=== PATIENT | male | born 1965 | race African-American/Black ===

== ENCOUNTER 2022-02-28 12:10 | Inpatient (IN) | payer OTHER ==
[~2022-02-28] VITALS: Ht 167.6 cm; Wt 75.3 kg
[2022-02-28] MEDS ORDERED: ACETAMINOPHEN 325MG TABLET PO STA (12:54)
[2022-02-28] MEDS ORDERED: SODIUM CHLORIDE 0.9% 1000ML BAG (SEPSIS BOLUS) IV ONE (13:00)
[2022-02-28] MEDS ORDERED: CEFTRIAXONE 1 G PREMIX 50 ML IV ONE (13:00)
[2022-02-28] MEDS ORDERED: VANCOMYCIN 1G PREMIX 200 ML IV ONE (13:00)
[2022-02-28 13:17] LABS: BASOPHILS % 0.3 % (0.0-2.0); EOSINOPHILS % 1.7 % (0.0-5.0); HEMATOCRIT. 43.7 % (42.0-52.0); HEMOGLOBIN. 14.5 g/dL (14.0-18.0); LYMPHOCYTES % 12.5 % (20.0-50.0); MEAN CORPUSCULAR HEMOGLOBIN 29.2 pg (28.0-32.0); MEAN PLATELET VOLUME 7.7 fl (7.4-10.4); MONOCYTES % 8.8 % (2.0-8.0); NEUTROPHILS % 76.7 % (40.0-76.0); PLATELET 223 x1000/uL (130-400); RED BLOOD CELL COUNT 4.97 mill/uL (4.7-6.1); RED CELL DISTRIBUTION WIDTH 14.4 % (11.6-14.6)
[2022-02-28 13:18] LABS: CHLORIDE 104 mEq/L (98-107)
[2022-02-28 13:42] LABS: CLARITY URINE CLEAR (CLEAR); COLOR URINE YELLOW (YELLOW); KETONES URINE TRACE (NEGATIVE); LEUKOCYTE ESTERASE URINE NEGATIVE (NEGATIVE); NITRITE URINE NEGATIVE (NEGATIVE); OCCULT BLOOD URINE NEGATIVE (NEGATIVE); PH URINE 5.5 (4.5-8.0); PROTEIN URINE 1+ (NEGATIVE); SPECIFIC GRAVITY URINE 1.028 (1.005-1.030)
[2022-02-28 18:00] VITALS: BP 98/60
[2022-02-28 20:00] VITALS: BP 113/62
[2022-02-28] MEDS ORDERED: DEXTROSE 50% WATER 50ML SYRINGE IV PRN (20:30)
[2022-02-28] MEDS ORDERED: ACETAMINOPHEN 325MG TABLET PO PRN (20:30)
[2022-02-28 20:31] VITALS: BP 113/62
[2022-02-28] MEDS: BLOOD SUGAR DIAGNOSTIC STRIP TEST SCH (21:00)
[2022-02-28] MEDS: INSULIN LISPRO 100 UNITS/ML SUBCUT SCH (21:00)
[2022-02-28] MEDS: PIPERACILLIN/TAZOBACTAM 3.375 G in DEXTROSE 5% WATER 50 ML IV SCH (23:19)
[2022-02-28] MEDS: OSELTAMIVIR 75MG CAPSULE PO SCH (23:19)
[2022-03-01] VITALS: BP 115/65
[2022-03-01 04:00] VITALS: BP 110/50
[2022-03-01] MEDS: PIPERACILLIN/TAZOBACTAM 3.375 G in DEXTROSE 5% WATER 50 ML IV SCH ×3 (06:11→22:17)
[2022-03-01] MEDS: BLOOD SUGAR DIAGNOSTIC STRIP TEST SCH ×4 (06:50→20:31)
[2022-03-01] MEDS: INSULIN LISPRO 100 UNITS/ML SUBCUT SCH ×4 (07:35→20:31)
[2022-03-01 07:48] LABS: HEMATOCRIT. 40.5 % (42.0-52.0); HEMOGLOBIN. 13.6 g/dL (14.0-18.0); MEAN CORPUSCULAR HEMOGLOBIN 29.8 pg (28.0-32.0); MEAN CORPUSCULAR VOLUME 88.7 fL (80.0-94.0); PLATELET 205 x1000/uL (130-400); RED BLOOD CELL COUNT 4.57 mill/uL (4.7-6.1); RED CELL DISTRIBUTION WIDTH 14.6 % (11.6-14.6)
[2022-03-01 08:00] VITALS: BP 99/56
[2022-03-01 08:08] LABS: CHLORIDE 101 mEq/L (98-107)
[2022-03-01] MEDS ORDERED: PANTOPRAZOLE SODIUM 40 MG/VIAL IV SCH (09:00)
[2022-03-01] MEDS: ENOXAPARIN 40MG/0.4ML SYR SUBCUT SCH (10:03)
[2022-03-01] MEDS: OSELTAMIVIR 75MG CAPSULE PO SCH ×2 (10:04→20:33)
[2022-03-01 12:00] VITALS: BP 95/63
[2022-03-01 14:54] LABS: PLATELET ESTIMATE NORMAL
[2022-03-01 16:05] VITALS: BP 102/62
[2022-03-01 20:20] VITALS: BP 100/65
[2022-03-02] VITALS: BP 112/74
[2022-03-02 04:00] VITALS: BP 102/54
[2022-03-02] MEDS: PIPERACILLIN/TAZOBACTAM 3.375 G in DEXTROSE 5% WATER 50 ML IV SCH ×2 (05:47→13:42)
[2022-03-02 07:14] LABS: HEMATOCRIT. 44.2 % (42.0-52.0); HEMOGLOBIN. 15.2 g/dL (14.0-18.0); MEAN CORPUSCULAR HEMOGLOBIN 30.4 pg (28.0-32.0); MEAN CORPUSCULAR VOLUME 88.4 fL (80.0-94.0); MEAN PLATELET VOLUME 7.7 fl (7.4-10.4); PLATELET 200 x1000/uL (130-400); RED CELL DISTRIBUTION WIDTH 14.7 % (11.6-14.6)
[2022-03-02 07:38] LABS: CHLORIDE 105 mEq/L (98-107)
[2022-03-02] MEDS: BLOOD SUGAR DIAGNOSTIC STRIP TEST SCH ×3 (07:39→17:14)
[2022-03-02] MEDS: INSULIN LISPRO 100 UNITS/ML SUBCUT SCH ×3 (07:40→17:15)
[2022-03-02 07:41] VITALS: BP 95/66
[2022-03-02] MEDS: OSELTAMIVIR 75MG CAPSULE PO SCH (08:14)
[2022-03-02] MEDS: ENOXAPARIN 40MG/0.4ML SYR SUBCUT SCH (08:15)
[2022-03-02] MEDS ORDERED: FAMOTIDINE 20MG TABLET PO SCH (09:00)
[2022-03-02 11:42] VITALS: BP 105/69
[2022-03-02 15:47] VITALS: BP 93/60
[2022-03-02 17:01] LABS: PLATELET ESTIMATE NORMAL
[2022-03-02] MEDS ORDERED: TAM75 MT (17:43)
[2022-03-02] MEDS ORDERED: IBUP-2030 MT (17:44)
[2022-03-02 17:48] VITALS: BP 93/60
== END 2022-03-02 19:30 | disposition home or self-care (01) | DRG 720 ==
LOC: ER 12:10 → 7WST 14:19 → ENRESERV 15:31
PROVIDERS: ADMIT Internal Medicine; ATTEND Internal Medicine
DX: A41.89 Other specified sepsis (principal); E78.00 Pure hypercholesterolemia, unspecified; E78.5 Hyperlipidemia, unspecified; R65.20 Severe sepsis without septic shock; J10.1 Influenza due to other identified influenza virus with other respiratory manifestations; Z20.822 Contact with and (suspected) exposure to COVID-19
CPT/HCPCS: 36415; 71045; 80048; 80053; 81003; 82962; 83605; 83880; 84145; 84443; 84484; 85025; 87426; 87804; 93005; 99291; C9113; C9803; J0696; J1650; J2543; J3370; J7030; J7060